=== PATIENT | male | born 1955 | race Caucasian/White ===

== ENCOUNTER 2016-04-24 20:46 | Emergency (ER) | payer MEDICAID, OTHER ==
[~2016-04-24] VITALS: Ht 185.4 cm; Wt 95.5 kg
[2016-04-24] MEDS ORDERED: SODIUM CHLOR 0.9% 1000 ML INJ 1,000 ML IV SCH (20:59)
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
[2016-04-24] MEDS ORDERED: THIAMINE INJ 100 MG in SODIUM CHLORIDE 0.9% INJ 100 ML IV ONE (21:00)
[2016-04-24] MEDS ORDERED: SODIUM CHLORIDE 0.9% FLUSH 5 ML FLUSH IVF PRN (21:00)
[2016-04-24 21:01] VITALS: BP 140/92; PULSE 81; RESP 20; TEMP 97.8
[2016-04-24 21:04] VITALS: O2SAT 97
[2016-04-24 21:37] LABS: BASOPHIL # 0.1 TH/MM3 (0-0.2); BASOPHIL % 1.2 % (0.0-2.0); EOSINOPHIL # 0.2 TH/MM3 (0-0.4); EOSINOPHIL % 2.5 % (0.0-4.0); HEMATOCRIT 50.7 % (39.0-51.0); HEMO FLAGS DIFF FINAL; LYMPH % 48.6 % (9.0-44.0); LYMPHOCYTE # 3.8 TH/MM3 (1.0-4.8); MEAN CORPUSCULAR HEMOGLOBIN 31.7 PG (27.0-34.0); MONO % 8.3 % (0.0-8.0); NEUT % 39.4 % (16.0-70.0); PLATELET COUNT 130 TH/MM3 (150-450); RED BLOOD COUNT 5.29 MIL/MM3 (4.50-5.90); RED CELL DISTRIBUTION WIDTH 12.9 % (11.6-17.2); WHITE BLOOD COUNT 7.7 TH/MM3 (4.0-11.0)
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
[2016-04-24 21:46] LABS: CHLORIDE 107 MEQ/L (98-107); POTASSIUM 3.9 MEQ/L (3.5-5.1); SODIUM (NA) 140 MEQ/L (136-145)
[2016-04-24 21:50] LABS: ANION GAP 12 MEQ/L (5-15); BLOOD UREA NITROGEN 5 MG/DL (7-18)
[2016-04-24 21:53] LABS: ALT (GPT) 38 U/L (12-78); AST (GOT) 38 U/L (15-37); GLOMERULAR FILTRATION RATE 117 ML/MIN (>89)
[2016-04-24 21:54] LABS: TOTAL BILIRUBIN ADULT 0.5 MG/DL (0.2-1.0)
[2016-04-24 21:55] LABS: ALKALINE PHOSPHATASE 82 U/L (45-117)
[2016-04-24 22:35] VITALS: BP 124/76; PULSE 72; RESP 16; O2SAT 98
[2016-04-24] MEDS: SODIUM CHLOR 0.9% 1000 ML INJ 1,000 ML IV SCH ×2 (22:57→23:15)
[2016-04-24 22:59] VITALS: BP 118/76; PULSE 77; RESP 18; O2SAT 96
[2016-04-24] MEDS ORDERED: LISI10TA3 PO (23:03)
[2016-04-25 00:15] VITALS: BP 118/74; PULSE 66; RESP 16; O2SAT 98
[2016-04-25 03:10] VITALS: BP 119/66; PULSE 70; RESP 1; RESP 17; O2SAT 97
[2016-04-25 05:59] VITALS: BP 138/89
== END 2016-04-25 06:27 | disposition home or self-care (01) ==
LOC: PHED 20:46
DX: F10.220 Alcohol dependence with intoxication, uncomplicated (principal); I10 Essential (primary) hypertension; K85.90 Acute pancreatitis without necrosis or infection, unspecified; F17.210 Nicotine dependence, cigarettes, uncomplicated; Y90.8 Blood alcohol level of 240 mg/100 ml or more; Z86.73 Personal history of transient ischemic attack (TIA), and cerebral infarction without residual deficits; K43.2 Incisional hernia without obstruction or gangrene
CPT/HCPCS: 70450; 80053; 80320; 85025; 96361; 96365; 99284; J3411; J7030